=== PATIENT | female | born 1940 | race African-American/Black ===

== ENCOUNTER 2018-11-26 07:44 | Emergency (ER) | payer MEDICARE ==
[~2018-11-26] VITALS: Ht 165.1 cm; Wt 66.0 kg
[2018-11-26 08:12] LABS: BASOPHILS % 0.8 % (0.0-2.0); EOSINOPHILS % 1.1 % (0.0-5.0); HEMOGLOBIN. 14.8 g/dL (12.0-16.0); LYMPHOCYTES % 33.8 % (20.0-50.0); MEAN CORPUSCULAR HEMOGLOBIN 32.5 pg (28.0-32.0); MEAN CORPUSCULAR VOLUME 98.5 fL (81.0-99.0); MEAN PLATELET VOLUME 10.1 fl (7.4-10.4); MONOCYTES % 6.3 % (2.0-8.0); PLATELET 162 x1000/uL (130-400); RED BLOOD CELL COUNT 4.57 mill/uL (4.2-5.4); RED CELL DISTRIBUTION WIDTH 16.1 % (11.6-14.6)
[2018-11-26] MEDS ORDERED: METHYLPREDNISOLONE SOD SUCC 125 MG/2 ML VIAL IV STA (08:17)
[2018-11-26] MEDS ORDERED: SODIUM CHLORIDE 0.9% 1,000 ML IV ONE (08:17)
[2018-11-26] MEDS ORDERED: ALBUTEROL (0.083%) 2.5MG/3ML NEB HHN STA (08:17)
[2018-11-26 08:20] LABS: CHLORIDE 105 mEq/L (98-107)
[2018-11-26] MEDS ORDERED: FUROSEMIDE 20MG/2ML VIAL IVP ONE (08:45)
[2018-11-26 11:28] VITALS: BP 135/70
== END 2018-11-26 11:36 | disposition short-term general hospital (02) ==
LOC: ER 07:44
DX: I50.40 Unspecified combined systolic (congestive) and diastolic (congestive) heart failure (principal)
CPT/HCPCS: 36415; 71045; 80053; 83880; 84484; 85025; 93005; 94640; 96374; 96375; 99285; J1940; J2930; J7030; J7611

== ENCOUNTER 2019-05-15 20:10 | Emergency (ER) | payer MEDICARE ==
[~2019-05-15] VITALS: Ht 157.5 cm; Wt 50.0 kg
[2019-05-15 20:12] VITALS: BP 131/79
== END 2019-05-15 22:04 | disposition left against medical advice (07) ==
LOC: ER 21:24
DX: J11.1 Influenza due to unidentified influenza virus with other respiratory manifestations (principal); Z53.21 Procedure and treatment not carried out due to patient leaving prior to being seen by health care provider